=== PATIENT | female | born 1975 | race Caucasian/White ===

== ENCOUNTER → 2020-07-25 13:46 | Outpatient (BNVA) | payer OTHER, SELFPAY | PROVIDERS: PCP Nurse Practitioner Family; Referring Provider Nurse Practitioner Family; Visit Provider Dietitian, Registered | DX: Z76.89 Persons encountering health services in other specified circumstances (principal) ==

== ENCOUNTER → 2020-08-22 11:18 | Outpatient (BNVA) | payer OTHER, SELFPAY | PROVIDERS: PCP Nurse Practitioner Family; Referring Provider Nurse Practitioner Family; Visit Provider Dietitian, Registered | DX: Z76.89 Persons encountering health services in other specified circumstances (principal) ==

== ENCOUNTER → 2020-09-20 08:18 | Outpatient (BNVA) | payer OTHER, SELFPAY | PROVIDERS: PCP Nurse Practitioner Family; Referring Provider Nurse Practitioner Family; Visit Provider Physician Assistant | DX: Z76.89 Persons encountering health services in other specified circumstances (principal) ==

== ENCOUNTER 2020-09-23 | Outpatient (REF) | payer OTHER, SELFPAY | END 2020-09-23 00:01 | disposition home or self-care (01) | LOC: HO.LAB | PROVIDERS: Visit Provider Physician Assistant | DX: Z11.0 Encounter for screening for intestinal infectious diseases (principal) | CPT/HCPCS: 83013 ==

== ENCOUNTER → 2020-09-23 09:08 | Outpatient (BNVA) | payer OTHER, SELFPAY | PROVIDERS: PCP Nurse Practitioner Family; Visit Provider Physician Assistant | DX: Z76.89 Persons encountering health services in other specified circumstances (principal) ==

== ENCOUNTER → 2020-10-10 14:23 | Outpatient (BNVA) | payer OTHER, SELFPAY | PROVIDERS: PCP Nurse Practitioner Family; Visit Provider Physician Assistant | DX: Z76.89 Persons encountering health services in other specified circumstances (principal) ==

== ENCOUNTER → 2020-11-04 08:08 | Outpatient (BNVA) | payer OTHER, SELFPAY | PROVIDERS: PCP Nurse Practitioner Family; Visit Provider Dietitian, Registered ==

== ENCOUNTER 2020-11-19 09:43 | Day surgery (SDC) | payer OTHER, SELFPAY ==
--- NOTE | 2020-11-18 08:49 | P.CONAN_ITS ---
Documented by User: Bozena Bender 11/18/20 08:50 HPI - Anesthesia Eval Consult details Narrative: 45yo F for Upper Endoscopy and Colonoscopy PMF Active Problems Active Problems: All Active Problems (Updated 10/10/20 @ 14:48 by Kelly Boss PA-C) Family history of colon cancer (Acute) Dyspepsia (Acute) Obesity with body mass index (BMI) of 30.0 to 39.9 (Acute) Past Medical History Medical History Anxiety Depression Dyspepsia GERD (gastroesophageal reflux disease) Obesity with body mass index (BMI) of 30.0 to 39.9 Family History Family History Father Type 2 diabetes mellitus Heart disease Mother Anemia B12 deficiency Colon cancer Brother No problems noted. Sister No problems noted. Surgical History Surgical History Hx of breast reduction, elective Hx of wisdom tooth extraction Social History Social History Household Members: Spouse Alcohol intake: never Smoking Status: Former smoker Use of substances other than those prescribed or required for medical reasons: No Have you been hit, kicked, punched, or otherwise hurt by someone within the past year? If so, by whom?: No Advance Directives: No Advance Directives Information Provided: No Recently lost weight without trying: No Current occupation: Unemployed due to [employer] Meds Allergies Allergy/AdvReac Type Severity Reaction Status Date / Time Pt states no food/medication Allergy Unknown Uncoded 01/05/18 00:00 a Home Medications Medication Instructions Recorded Confirmed Type bupropion HCl 300 mg 24 hr tablet, 300 mg PO QAM 10/10/20 10/10/20 History extended release lorazepam 0.5 mg tablet 0.5 mg PO BID PRN 10/10/20 10/10/20 History Exam Exam Date and Time: November 18, 2020 0849 Assessment and Plan Assessment Anesthesia Assessment: Chart Reviewed Documented by User: Francoise Wallace 11/19/20 10:50 PMFSH Past Medical History Medical History Anxiety Depression Dyspepsia GERD (gastroesophageal reflux disease) Obesity with body mass index (BMI) of 30.0 to 39.9 Family History Family History Father Type 2 diabetes mellitus Heart disease Mother Anemia B12 deficiency Colon cancer Brother No problems noted. Sister No problems noted. Surgical History Surgical History Hx of breast reduction, elective Hx of wisdom tooth extraction Social History Social History Household Members: Spouse Alcohol intake: never Smoking Status: Former smoker Use of substances other than those prescribed or required for medical reasons: No Have you been hit, kicked, punched, or otherwise hurt by someone within the past year? If so, by whom?: No Advance Directives: No Advance Directives Information Provided: No Recently lost weight without trying: No Current occupation: Unemployed due to [employer] Allergies Allergy/AdvReac Type Severity Reaction Status Date / Time Pt states no food/medication Allergy Unknown Uncoded 01/05/18 00:00 a Home Medications Medication Instructions Recorded Confirmed Type bupropion HCl 300 mg 24 hr tablet, 300 mg PO QAM 10/10/20 10/10/20 History extended release lorazepam 0.5 mg tablet 0.5 mg PO BID PRN 10/10/20 10/10/20 History Exam Airway Mallampati Class: II TM Dist: >3cm Neck ROM: Full
[2020-11-19 09:15] VITALS: BMI 36.3
[2020-11-19 09:55] VITALS: BP 137/92; PULSE 73; RESP 20; TEMP 36.5; O2SAT 98
[2020-11-19 10:17] LABS: UPreg QC Valid YES; Urine Pregnancy NEGATIVE (NEGATIVE)
[2020-11-19] MEDS: Lactated Ringers 1,000 ML 100 ML IVCONT (10:21)
--- NOTE | 2020-11-19 11:48 | W.PM.OPN ---
Operative Note Operative Note Date of Service: 11/19/20 Narrative: Pre-op diagnosis: Colon cancer screening, family history of colon cancer, GERD, increased belching Post-op diagnosis: other (GERD, hiatal hernia, gastritis, diverticulosis, hemorrhoids) Procedure: FLEXIBLE TRANSORAL UPPER GASTROINTESTINAL ENDOSCOPY WITH BIOPSIES AND COLONOSCOPY TILL CECUM UPPER ENDOSCOPY Consent: Indications for the procedure and potential complications of bleeding, perforation, reaction to medications and missed diagnosis were discussed with the patient and informed consent was obtained. Instrument: Olympus GIF H 190 mid size upper endoscope Monitoring: Vital signs and clinical assessment, continuous EKG monitoring, Pulse oximetry, Carbon Dioxide monitoring and blood pressure monitoring were done throughout the procedure. Procedure: The patient was placed in the left lateral decubitis position and pre-procedure medications were administered and a bite block was placed. The endoscope was inserted into the mouth and advanced under direct vision to the third part of duodenum. A careful inspection was made as the upper endoscope was withdrawn including a retroflexed examination of the proximal stomach; Findings and interventions are described below. Findings: Larynx: Normal Esophagus: Tortuous esophagus with increased tertiary contractions without stricture or ring - biopsies were obtained from proximal esophagus to check for EOE. GE junction at 30 cms, hiatal hernia 30 to 33 cms. No esophagitis or Huffman's. Stomach: Mild gastric erythema. Biopsies were obtained. Grade 2 flap valve on retroflexed examination of the cardia. Duodenum: Normal bulb and descending duodenum. Biopsies were obtained from 3rd part of duodenum to check for celiac sprue. Intervention: Biopsies as noted above COLONOSCOPY PROCEDURE NOTE Consent: Indications for the procedure and potential complications of bleeding, perforation, reaction to medications and missed diagnosis were discussed with the patient and informed consent was obtained. Instrument: Olympus PCF H 190 L variable stiffness pediatric colonoscope Monitoring: Vital signs and clinical assessment, intermittent blood pressure monitoring, continuous EKG monitoring, Pulse oximetry and Carbon Dioxide monitoring were done throughout the procedure. Colon withdrawl time was 21 minutes. Procedure: The patient was placed in the left lateral decubitis position and pre-procedure medications were administered. After a digital rectal examination of the ano-rectum, the video colonoscope was inserted into the rectum and advanced through the colon to the cecum. The colonoscope was slowly withdrawn in a retrograde panoramic fashion and the colon mucosa was carefully examined including a retroflexed view of the rectum. Findings and interventions are described below. Procedure Difficulty: : Without difficulty Findings: Terminal Ileum: Not evaluated Cecum: Normal Ascending Colon: Normal Transverse Colon: Normal Descending Colon: Moderate diverticulosis Sigmoid Colon: Severe diverticulosis with luminal narrowing Rectum: Normal Ano-rectum: Normal Colon preparation: Good Impression and Post Procedure Diagnosis: Endoscopy Findings: ESOPHAGUS: Tortuous esophagus with increased tertiary contractions without stricture or ring - biopsies were obtained from proximal esophagus to check for EOE. GE junction at 30 cms, hiatal hernia 30 to 33 cms. No esophagitis or Huffman's. STOMACH: Gastritis Colonoscopy Findings: No polyps were detected Moderate to severe diverticulosis seen in the left colon Plan: Await pathology results. Pt was advised to start Pantoprazole 40 mg once daily for her symptoms - prescription was sent to her preferred pharmacy. Patient has an appointment on 01/01/21 in the [facility] with GIOVANNA Benz . Repeat Colonoscopy in 5 years due to positive family history of colon cancer (Mom diagnosed with stage 2 cancer at age 64 yrs). Above findings were reviewed with the patient and GERD, hiatal hernia and diverticulosis handouts were given in the discharge area Surgeon: Christy Richardson MD Anesthesia: MAC (DORINDA Costa) Estimated blood loss (mL): 0 Pathology: other (a: small bowel bx's r/o celiac b: gastric bx's c: proximal esophagus bx's r/o EOE) Condition: stable Disposition: PACU
--- NOTE | 2020-11-19 11:48 | MHC.SHP ---
Pre-Procedural Eval Section A The patient is an INPATIENT: No The History & Physical has been completed within 30 days and I have reviewed it.: No Section B Chief Complaint: acid reflux,screening Relevant Family History (Specify if Yes): Yes Relevant Social History: Tobacco Use (Past smoker) Present Medications: see Short Stay Collaborative assessment Medical History: Significant History (Anxiety Depression Dyspepsia GERD (gastroesophageal reflux disease) Obesity with body mass index (BMI) of 30.0 to 39.9) History of Previous Operations: Relevant previous surgery/procedure and date(s) (Anxiety Depression Dyspepsia GERD (gastroesophageal reflux disease) Obesity with body mass index (BMI) of 30.0 to 39.9) Allergies: Allergies Allergy/AdvReac Type Severity Reaction Status Date / Time Pt states no food/medication Allergy Unknown Uncoded 01/05/18 00:00 a Review of Systems Sugical H&P ROS: Negative: Constitution, Cardiovascular and Respiratory and Yes, Specify: Gastrointestinal (GERD, belching) Exam Surgical H&P Exam: Normal: Heart, Normal: Lungs, Normal: Extremities and Normal: Abdomen Plan Diagnosis/Plan: Unchanged I have reviewed the history and physical and performed a pertinent physical examination on my patient. No changes have occurred unless specified.
[2020-11-19 13:06] VITALS: BP 110/59; PULSE 97; RESP 16; TEMP 36.8; O2SAT 94
[2020-11-19 13:21] VITALS: BP 107/71; PULSE 71; RESP 18; TEMP 36.8; O2SAT 95
--- NOTE | 2020-11-19 13:55 | HO.POSTANES ---
Post Anesthesia Evaluation Post Anesthesia Evaluation Vital Signs: Vital Signs Temp Pulse Resp BP Pulse Ox 11/19/20 13:21 98.2 F 71 18 107/71 95 11/19/20 13:06 98.2 F 97 16 110/59 L 94 11/19/20 09:55 97.7 F 73 20 137/92 H 98 Anesthesia: Monitored Mental Status: Awake Pain Control: Satisfactory Nausea/Vomiting: None Hydration: Adequate Anesthesia-Related Issues: No Anes. Related Issues
== END 2020-11-19 14:00 | disposition home or self-care (01) ==
PROVIDERS: Nurse Practitioner; PCP Nurse Practitioner Family; Visit Provider Internal Medicine Gastroenterology
PROC: (CPT 45378; principal; 2020-11-19 10:50)
DX: Z12.11 Encounter for screening for malignant neoplasm of colon (principal); K57.30 Diverticulosis of large intestine without perforation or abscess without bleeding; K21.9 Gastro-esophageal reflux disease without esophagitis; K44.9 Diaphragmatic hernia without obstruction or gangrene; K29.70 Gastritis, unspecified, without bleeding; K22.8 Other specified diseases of esophagus; Z80.0 Family history of malignant neoplasm of digestive organs
CPT/HCPCS: 45378; 43239; 81025; 88305; 88342

== ENCOUNTER → 2020-12-06 08:28 | Outpatient (BNVA) | payer OTHER, SELFPAY | PROVIDERS: PCP Nurse Practitioner Family; Visit Provider Physician Assistant ==

== ENCOUNTER → 2021-01-01 09:27 | Outpatient (BNVA) | payer OTHER, SELFPAY | PROVIDERS: PCP Nurse Practitioner Family; Visit Provider Physician Assistant ==

== ENCOUNTER → 2021-01-15 13:40 | Outpatient (BNVA) | payer OTHER, SELFPAY | PROVIDERS: PCP Nurse Practitioner Family; Visit Provider Physician Assistant ==

== ENCOUNTER → 2021-05-01 10:12 | Outpatient (BNVA) | payer OTHER, SELFPAY | PROVIDERS: PCP Nurse Practitioner Family; Visit Provider Dietitian, Registered | DX: E66.9 Obesity, unspecified (principal); Z68.35 Body mass index [BMI] 35.0-35.9, adult | CPT/HCPCS: 97803 ==

== ENCOUNTER → 2021-07-14 08:32 | Outpatient (BNVA) | payer OTHER, SELFPAY | PROVIDERS: PCP Nurse Practitioner Family; Visit Provider Dietitian, Registered | DX: E66.9 Obesity, unspecified (principal); Z68.35 Body mass index [BMI] 35.0-35.9, adult | CPT/HCPCS: 97803 ==